=== PATIENT | female | born 1990 | race Two or more races ===

== ENCOUNTER 2024-05-02 00:06 | Emergency (ER) | payer MEDICAID, SELFPAY ==
[2024-05-02 00:31] VITALS: BP 153/90; PULSE 83; RESP 18; TEMP 37.1; O2SAT 97
--- NOTE | 2024-05-02 00:43 | EDNOTE_ITS ---
<Statement entered by Cristina Key MD - 05/12/24 17:37> As co-signing physician, I was present and available for consult prn. I concur with the plan and care as documented by the midlevel provider. Lower Extremity Injury RME/HPI General Chief Complaint: Extremity Injury, Lower Stated Complaint: LEFT ANKLE AND LOWER LEG INJURY Time Seen by Provider: 05/02/24 00:14 Source: patient Arrival date/time: 05/02/24 00:06 33-year-old female presents emergency department complaining of left ankle and left lateral price pain after misstep at home that caused her to twist her ankle and fall forward. Patient denies any LOC or injury to head or neck area. Mode of arrival: wheelchair Limitations: physical limitation Related Data Home Medications ?Medication ?Instructions ?Recorded ?Confirmed norethindrone acetate 1.5 tab 10/16/22 mg-ethinyl estradiol 30 mcg tablet (Microgestin) Previous Rx's ?Medication ?Instructions ?Recorded ibuprofen 600 mg tablet 600 mg PO Q8H PRN pain #20 tabs 05/02/24 Allergies Allergy/AdvReac Type Severity Reaction Status Date / Time No Known Allergies Allergy Verified 10/18/22 09:37 Review of Systems Review of Systems Systems Reviewed: All systems reviewed, normal except as documented Constitutional Constitutional: Reports system reviewed and no additional complaints, except as documented, Denies body ache(s), Denies chills and Denies fever(s) Eyes Eyes: Reports system reviewed and no additional complaints, except as documented and Denies change in vision ENT Ears, Nose, Mouth, and Throat: Reports system reviewed and no additional complaints, except as documented, Denies disequilibrium, Denies dizziness, Denies sore throat and Denies vertigo Cardiovascular Cardiovascular: Reports system reviewed and no additional complaints, except as documented, Denies chest pain and Denies dyspnea Respiratory Respiratory: Reports system reviewed and no additional complaints, except as documented, Denies chest congestion, Denies cough and Denies dyspnea Gastrointestinal Gastrointestinal: Reports system reviewed and no additional complaints, except as documented, Denies abdominal pain, Denies nausea and Denies vomiting Musculoskeletal Musculoskeletal: Reports system reviewed and no additional complaints, except as documented, Denies abnormal gait and Reports arthralgias Integumentary/Breasts Skin/Breast: Reports system reviewed and no additional complaints, except as documented, Denies erythema, Denies rash and Denies wounds Neurologic Neurologic: Reports system reviewed and no additional complaints, except as documented, Denies abnormal gait, Denies disequilibrium, Denies dizziness and Denies vertigo ED Exam General Limitations: Present physical limitation General appearance: Present alert and in no apparent distress Head Head exam: Present atraumatic Eye Eye exam: Present normal appearance, PERRL and EOMI ENT ENT exam: Present normal exam, normal oropharynx and mucous membranes moist Neck Neck exam: Present normal inspection, full ROM and trachea midline Chest Chest inspection: Present normal inspection and symmetric chest wall rise Respiratory Respiratory exam: Present normal lung sounds bilaterally Cardiovascular Cardiovascular exam: Present regular rate, normal rhythm and normal heart sounds Abdominal Exam Abdominal exam: Present soft and normal bowel sounds Extremities Exam Extremities exam: Present normal inspection and full ROM Expanded Lower Extremity Exam Ankle exam: Present tenderness (Left ankle) and swelling (+2 edema left ankle) Foot/toe exam: Present normal inspection Neurovascular/Tendon exam: Present normal capillary refill Gait: observed and limited by pain Back Exam Back exam: Present normal inspection and full ROM Neurological Exam Neurological exam: Present alert, oriented X3 and CN II-XII intact Psychiatric Psychiatric exam: Present normal affect and normal mood Skin Skin exam: Present warm, dry, intact and normal color Course Quality Measures none Orders Category Date Time Status XR ankle comp LT min 3V Stat Exams 05/02/24 00:43 Taken XR tibia fibula LT 2V Stat Exams 05/02/24 00:43 Taken Ketorolac Inj [Toradol Inj] Med 05/02/24 00:43 Discontinued 30 mg IM X1 ONE Vital Signs Vital signs: Vital Signs Temperature 98.7 F 05/02/24 00:31 Pulse Rate 83 05/02/24 00:31 Respiratory Rate 18 05/02/24 00:31 Blood Pressure 153/90 H 05/02/24 00:31 Pulse Oximetry (%) 97 05/02/24 00:31 Oxygen Delivery Method Room Air 05/02/24 00:31 97% room air within normal limits Extremity Injury, Lower MDM Narrative MDM Narrative:: 33-year-old female presents emergency department complaining of left ankle and left lateral price pain after misstep at home that caused her to twist her ankle and fall forward. Patient denies any LOC or injury to head or neck area. X-rays of ankle and tib-fib were unremarkable. Patient's left lower extremity neurovascularly intact. Patient placed in Danny bandage given crutches and instructed to follow-up with primary care provider upon discharge. Instructed to return to the emergency department for any worsening symptoms or as needed. Patient data External records reviewed:: [facility] previous records Clinical information provided by:: patient Social determinants that could affect healthcare access:: none Patient has the following chronic illnesses:: See chart How is presenting disease/condition affected by chronic disease/condition?: un effected by Evaluation data The following diagnostics were reviewed and interpreted by me:: radiology exam(s) Lab and/or radiology exams considered but not ordered:: Ordered Interpretation Summary: Interpreted by me Medications / Prescriptions Medications or Prescriptions considered but not ordered:: Ordered Medication administrations:: Medication Administration History Discontinued Medications Ketorolac Tromethamine (Ketorolac Inj 60 Mg/2 Ml Vial) 30 mg IM X1 ONE Stop: 05/02/24 00:44 Last Admin: 05/02/24 01:13 Dose: 30 mg Documented By: CVL Given Consultations Consultation(s) initiated? (list below): No Diagnosis Most likely diagnosis given after review of the tests above:: Ankle sprain Admission Indicated Admission indicated?: not indicated Admission Request Was there a request for admission?: No Disposition Plan Disposition Plan: Discharge Discharge Attestation Discharge Attestation: The patient and all family members were given an opportunity to ask questions and understood the discharge instructions. Discharge instructions specifically effects, indications for sooner follow up or return to the emergency department, and the expected course of current diagnosis. Patient condition: Stable Discharge Plan Plan Patient Disposition: HOME (Self Care) Disposition Comment: Stable Prescriptions/Referrals Prescriptions/Med Rec: New ibuprofen 600 mg tablet 600 mg PO Q8H PRN (Reason: pain) Qty: 20 0RF No Action norethindrone ac-eth estradiol [Microgestin 1.5/30 (21)] 1.5-30 mg-mcg Tablet Referrals: Troy Mclaughlin MD [Primary Care Provider] - In 1 week Problem List Clinical Impression: Ankle sprain Patient/Caregiver Discharge Instructions Discharge Activity: activity as tolerated Education Materials: ED DANNY Wrap, ED Ankle Sprain (Adult) Additional Instructions: Take ibuprofen as needed for pain. Follow-up with primary care provider upon discharge. Return to emergency department for any worsening symptoms or as needed. Print Language: Ugandan Stand Alone Forms: [employer] Patient Portal Info Letter PA/LABORER ROAD Supervising Physician PA/LABORER ROAD Supervising Physician: Dr. Key
--- NOTE | 2024-05-02 00:43 | XR_ITS ---
EXAMINATION: Ankle, left 3 views . Technique: Ankle AP, oblique, lateral 3 views Date and time of exam: April 30, 2024 0048 hrs. Indications: Patient fell today with into the ankle, ankle pain. Findings: No fracture or dislocation Impression: No fracture or dislocation
--- NOTE | 2024-05-02 00:43 | XR_ITS ---
Examination: Tibia-Fibula, left , 2 views Technique: Tibia-fibula AP lateral 2 views Date and time of exam: May 02, 2024 0048 hrs. Indications: Patient fell today with injury to left lower leg, left lower leg pain. Findings: No fracture or dislocation Impression: No fracture or dislocation
[2024-05-02] MEDS: KETOROLAC INJ 60 MG/2 ML VIAL 30 MG IM (01:13)
[2024-05-02 03:05] VITALS: RESP 18
--- NOTE | 2024-05-02 04:26 | PRELIM_ITS ---
Radiographs of the left ankle joint (03 views). May 02, 2024 at 0048 hoursClinical history: Pain and status post fall.Comparison: No prior study is available for comparison.Findings:There are no fr actures. The bones and joint spaces are unremarkable. Alignment is normal.Normal soft tissues.Impress ion: Normal exam. Report Electronically Signed By: Felipe Carrera 05/02/2024 4:25:38 AM [EST]
== END 2024-05-02 03:06 | disposition home or self-care (01) ==
PROVIDERS: Emergency Provider Emergency Medicine; PCP Family Medicine
DX: S93.402A Sprain of unspecified ligament of left ankle, initial encounter (principal); S89.92XA Unspecified injury of left lower leg, initial encounter; W18.39XA Other fall on same level, initial encounter
CPT/HCPCS: 73590; 73610; 96372; 99283; J1885

== ENCOUNTER 2025-01-23 15:42 | Emergency (ER) | payer MEDICAID, SELFPAY ==
[2025-01-23 15:43] VITALS: BMI 41.6
[2025-01-23 15:47] VITALS: BP 146/95; PULSE 107; RESP 18; TEMP 36.7; O2SAT 96
--- NOTE | 2025-01-23 17:08 | XR_ITS ---
Examination: OB Transvaginal ultrasound of the pelvis, complete Technique: Transvaginal sonographic images pelvis performed using liz scale imaging Exam date and time: January 23, 2025, 1724 hrs. Indications: Vomiting beginning 9:00 AM today Findings: Uterus 14.4 cm CRL 4.15 cm corresponds to 11 weeks 0 days gestational age Cardiac motion 180 bpm Ovaries obscured by bowel gas Impression: Viable intrauterine gestation 11 weeks 0 days.
--- NOTE | 2025-01-23 17:09 | PD.EDRME ---
Rapid Medical Screening Exam E Arrival date/time: 01/23/25 15:42 This is a 34-year-old female that comes in to the emergency room with complaints of vomiting abdominal pain, diarrhea runny nose. Patient states she is 10 weeks 4 days . Patient denies any vaginal bleeding. Patient denies urinary symptoms. I have greeted and performed a focused initial assessment of this patient. Initial appropriate labs ordered at this time. A comprehensive ED assessment and evaluation of the patient and analysis of all test and completion of medical decision making process will be conducted by additional ED provider. Chief Complaint: Nausea/Vomiting/Diarrhea Time Seen by Provider: 01/23/25 16:39 Vital signs: Vital Signs Temperature 98.1 F 01/23/25 15:47 Pulse Rate 107 H 01/23/25 15:47 Respiratory Rate 18 01/23/25 15:47 Blood Pressure 146/95 H 01/23/25 15:47 Pulse Oximetry (%) 96 01/23/25 15:47 Oxygen Delivery Method Room Air 01/23/25 15:47
[2025-01-23 17:35] LABS: Collection Type, Urine Voided
[2025-01-23] MEDS: ONDANSETRON ODT 4 MG TABRAP PO (17:42)
[2025-01-23 17:46] LABS: Bacteria,Urine 1+; Bilirubin,Urine Negative (Negative); Blood,Urine Trace (Negative); Clarity,Urine Turbid (Clear/Hazy); Color,Urine Yellow (Lt Yel-Yel); Glucose, Urine Negative (Negative); Ketones,Urine 2+ (Negative); Leukocyte Esterase,Urine Positive (Negative); Nitrite,Urine Positive (Negative); PH,Urine 6.0 (5.0-7.0); Protein,Urine Trace (Neg - Trace); RBC,Urine 4 /hpf (0-3); Specific Gravity,Urine 1.026 (1.001-1.035); Squamous Epithelial Cell,Urine 4 /hpf (0-5); Transitional Epi Cells,Urine < 1 /hpf (0-5); Urobilinogen,Urine Negative mg/dL (0.0-1.0); WBC,Urine 36 /hpf (0-5)
[2025-01-23 17:47] LABS: Culture Indicated,Urine Yes
[2025-01-23 18:15] LABS: Basophils # (Auto) 0.1 Thou/mm3 (0.0-0.2); Basophils % (Auto) 0 % (0-2.5); Eosinophils # (Auto) 0.1 Thou/mm3 (0.0-0.5); Eosinophils % (Auto) 0 % (0-10); Hematocrit 40.0 % (36.0-46.0); Hemoglobin 14.1 g/dL (12.0-16.0); Immature Granulocytes Auto 0.09 Thou/mm3 (0.00-0.00); Lymphocytes # (Auto) 1.2 Thou/mm3 (1.0-4.8); Lymphocytes % (Auto) 6 % (10-50); Mean Corpuscular HGB Conc 35.3 g/dl (31.0-37.0); Mean Corpuscular Hemoglobin 30.1 pg (25.0-35.0); Mean Corpuscular Volume 85 fL (80-100); Monocytes # (Auto) 0.9 Thou/mm3 (0.0-0.8); Monocytes % (Auto) 4 % (0-12); Neutrophils # (Auto) 18.7 Thou/mm3 (1.8-7.7); Neutrophils % (Auto) 89 % (37-80); Nucleated Red Blood Cell # 0.00 Thou/mm3 (0.00-0.00); Nucleated Red Blood Cell % 0 /100 WBC (0); Platelet Count 219 Thou/mm3 (140-440); RDW Standard Deviation 40.6 fL (36.4-46.3); Red Blood Count 4.69 Miln/mm3 (4.00-5.20); White Blood Count 21.0 Thou/mm3 (3.6-11.0)
[2025-01-23 19:10] LABS: Alanine Aminotransferase 12 U/L (10-49); Albumin, Serum 4.4 gm/dL (3.5-5.0); Albumin/Globulin Ratio 1.8 (1.2-2.2); Alkaline Phosphatase 60 U/L (46-116); Anion Gap 14 (7-16); Aspartate Amino Transferase 19 U/L (0-34); BUN/Creatinine Ratio 16 Ratio (12-20); Bilirubin,Total 0.3 mg/dL (0.3-1.2); Blood Urea Nitrogen 8 mg/dL (9-23); Calcium 9.6 mg/dL (8.3-10.6); Calcium (Corrected) 9.6 mg/dL (8.5-10.1); Carbon Dioxide 22.5 mMol/L (20.0-31.0); Chloride 104 mMol/L (98-107); Creatinine (Component) 0.5 mg/dL (0.6-1.3); Estimated Creatinine Clearance 185.4 mL/min (>60); Globulin 2.4 gm/dL (2.3-3.5); Glucose 87 mg/dL (74-106); Osmolality,Calculated 276 (275-295); Potassium 3.9 mMol/L (3.4-5.1); Sodium 140 mMol/L (136-145); Total Protein 6.8 gm/dL (5.7-8.2); eGFR > 60 See Note
[2025-01-23 19:42] LABS: Beta HCG,Quantitative 95621 mIU/mL (<5.0)
--- NOTE | 2025-01-23 20:34 | PD.EDADULT ---
ED General RME/HPI General Chief complaint: Nausea/Vomiting/Diarrhea Stated complaint: VOMITING/ABD PAIN TODAY AND + PREG Time Seen by Provider: 01/23/25 16:39 Arrival date/time: 01/23/25 15:42 CC: Nausea vomiting runny nose intermittent diarrhea HPI ongoing since this morning. Patient is a G4, P2 at estimated 10 weeks and 4 days who denies any vaginal bleeding vaginal discharge lower abdominal cramping lower back pain. Patient is seen by [facility] for her . Currently the patient is not nauseated after being administered Zofran while in the waiting room. RME / HPI RME / HPI narrative: 01/23/25 15:42 This is a 34-year-old female that comes in to the emergency room with complaints of vomiting abdominal pain, diarrhea runny nose. Patient states she is 10 weeks 4 days . Patient denies any vaginal bleeding. Patient denies urinary symptoms. I have greeted and performed a focused initial assessment of this patient. Initial appropriate labs ordered at this time. A comprehensive ED assessment and evaluation of the patient and analysis of all test and completion of medical decision making process will be conducted by additional ED provider. Related Data Home Medications ?Medication ?Instructions ?Recorded ?Confirmed norethindrone acetate 1.5 tab 10/16/22 mg-ethinyl estradiol 30 mcg tablet (Microgestin) Previous Rx's ?Medication ?Instructions ?Recorded ibuprofen 600 mg tablet 600 mg PO Q8H PRN pain #20 tabs 05/02/24 amoxicillin 875 mg-potassium 1 tab PO BID #14 tabs 01/23/25 clavulanate 125 mg tablet ondansetron 4 mg disintegrating 4 mg PO Q8H #20 tabs 01/23/25 tablet Allergies Allergy/AdvReac Type Severity Reaction Status Date / Time No Known Allergies Allergy Verified 01/23/25 15:45 Review of Systems Review of Systems Narrative Review of Systems: GEN: No fever, no chills, no weight loss EYES: No discharge, no visual changes, no pain HEENT: No ear pain, no congestion, no sore throat PULM: No shortness of breath, no cough, no congestion CV: No chest pain, no dyspnea on exertion, no palpitations GI: + nausea, +vomiting, no diarrhea, no pain, no constipation : No frequency, no urgency, no dysuria MUSC/SKEL: No joint pain, no back pain SKIN: No rash PSYCH: No hallucinations, no depression HEME/LYMPH: No easy bleeding or bruising tendencies NEURO: No weakness, no headache ED Exam Narrative Physical exam: [General: Obese not in any acute distress Head normocephalic HEENT: Within acceptable limits Neck is supple nontender Chest equal chest rise nontender to palpation Respiratory: Clear to auscultation no wheezes crackles or rubs CV: Rate rhythm is regular no murmurs rubs or clicks Abdomen is distended secondary to body habitus soft nontender no masses positive bowel sounds all 4 quadrants Back: No CVA tenderness no spinous process tenderness from cervical spine thoracic and lumbar spine Skin: Intact no petechiae rash induration ulceration or crepitus Extremities: Moving all extremity against resistance cap refill less than 2 seconds neurosensory intact Neuro: Awake alert oriented x3 Glascow coma 15 no focal deficits] Course Course Course Narrative: Patient's case discussed with Dr. Walker due to concern of the leukocytosis. He advised the patient to receive a gram of Rocephin and be discharged home on antibiotics. Patient is to follow-up with a primary care provider if the symptoms worsen despite of the medications return the emergency room for reevaluation. Quality Measures none Orders Category Date Time Status Bedside COVID-19 Antigen Test NOW Care 01/23/25 17:10 Active Bedside Influenza A&B Antigen Test NOW Care 01/23/25 17:10 Completed US OB transvaginal Stat Exams 01/23/25 17:08 Completed Beta HCG,Quantitative Stat Lab 01/23/25 17:57 Completed CBC Stat Lab 01/23/25 17:57 Completed Comprehensive Metabolic Panel Stat Lab 01/23/25 17:57 Completed Urinalysis, C/S if Indicated Stat Lab 01/23/25 17:25 Completed Urine Culture Stat Lab 01/23/25 17:25 Received Ondansetron Odt [Zofran Odt] Med 01/23/25 17:09 Discontinued 4 mg PO X1 ONE cefTRIAXone [Rocephin] 1,000 mg Med 01/23/25 20:34 Ordered Lidocaine 1% 20 ml [Xylocaine 1% 20 ML] 2.1 ml IM X1 Vital Signs Vital signs: Vital Signs Temperature 98.1 F 01/23/25 15:47 Pulse Rate 107 H 01/23/25 15:47 Respiratory Rate 18 09/07/25 15:47 Blood Pressure 146/95 H 01/23/25 15:47 Pulse Oximetry (%) 96 01/23/25 15:47 Oxygen Delivery Method Room Air 01/23/25 15:47 Discharge Plan Plan Patient Disposition: HOME (Self Care) Patient condition on transfer: Stable Prescriptions/Referrals Prescriptions/Med Rec: New amoxicillin-pot clavulanate 875-125 mg tablet 1 tab PO BID Qty: 14 0RF ondansetron 4 mg tablet,disintegrating 4 mg PO Q8H Qty: 20 0RF No Action norethindrone ac-eth estradiol [Microgestin 1.5/30 (21)] 1.5-30 mg-mcg Tablet ibuprofen 600 mg tablet 600 mg PO Q8H PRN (Reason: pain) Qty: 20 0RF Referrals: Gisel Hewitt CNM [Primary Care Provider, Obstetrics] - In 1 week Problem List Clinical Impression: UTI (urinary tract infection), Nausea & vomiting, Patient/Caregiver Discharge Instructions Education Materials: First Trimester, ED CYSTITIS Female Adult, ED Vomiting (Adult) Print Language: Croatian Stand Alone Forms: [employer] Award Info., Patient Portal Info Letter, Work/School Release PA/CRA OFFICER Supervising Physician PA/CRA OFFICER Supervising Physician: Wong Escobar ENP [facility] Clinical Information Provided by patient Medical Records Reviewed [facility] Meds/Rx Considered, not Ordered None Labs/Rad/Tests considered, not Ordered None Chronic Illness/Social Conditions Add or document further as needed: , obesity EKG EKG not done Lab Interpretation Lab(s) interpretation(s): CBC shows a leukocytosis of 21, no significant anemia or thrombocytopenia no bandemia CMP shows BUN of 8 creatinine of 0.5 no other electrolyte imbalances renal impairment transaminitis or T. bili elevation. Quantitative hCG at 95,621. Urine is turbid 2+ ketones nitrite positive leukocyte esterase positive RBCs at 4 WBCs at 30 61+ bacteria and 4 squamous cells. Imaging Provider imaging interpretation(s): Ultrasound shows a single IUP viable at 11 weeks 0 days. Medication Administration(s) none Medication Administration History Ceftriaxone Sodium 1,000 mg/ (Lidocaine HCl 2.1 ml) 0 mg IM X1 ONE Stop: 01/23/25 20:35 Discontinued Medications Ondansetron HCl (Ondansetron Odt 4 Mg Tabrap) 4 mg PO X1 ONE; Protocol Stop: 01/23/25 17:10 Last Admin: 01/23/25 17:42 Dose: 4 mg Documented By: Diagnosis Differential diagnosis: UTI pyelonephritis miscarriage Dispositon Disposition: Discharge Home
[2025-01-23] MEDS: cefTRIAXone 1,000 MG, LIDOCAINE 1% 20 ML 2.1 ML IM (20:49)
[2025-01-23 21:14] VITALS: BP 118/74; PULSE 84; RESP 18; O2SAT 98
== END 2025-01-23 21:15 | disposition home or self-care (01) ==
PROVIDERS: Nurse Practitioner Family; Emergency Provider Emergency Medicine; PCP Nurse Practitioner Women's Health
DX: O23.41 Unspecified infection of urinary tract in pregnancy, first trimester (principal); O21.9 Vomiting of pregnancy, unspecified; N39.0 Urinary tract infection, site not specified; Z3A.11 11 weeks gestation of pregnancy
CPT/HCPCS: 36415; 76817; 80053; 81001; 84702; 85025; 87077; 87086; 87186; 87400; 87811; 96372; 99284; J0696; J3490; Q0162

== ENCOUNTER 2025-03-14 16:09 | Emergency (ER) | payer MEDICAID, SELFPAY ==
[2025-03-14 16:10] VITALS: BMI 41.1
[2025-03-14 16:29] VITALS: BP 159/84; BP 170/80; PULSE 102; RESP 20; TEMP 36.9; O2SAT 98
--- NOTE | 2025-03-14 16:32 | EKG_ITS ---
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
--- NOTE | 2025-03-14 16:32 | PD.EDRME ---
Rapid Medical Screening Exam RME Arrival date/time: 03/14/25 16:09 34-year-old female with no known medical history presents to the emergency room with a chief complaint of 6 out of 10 left-sided sternal chest pain that radiates down her left arm x 2 days I have greeted and performed a focused initial assessment of this patient. A comprehensive ED assessment and evaluation of the patient, analysis of all test results, and completion of the medical decision making process will be conducted by additional ED providers. Chief Complaint: Shortness of Breath/Dyspnea Time Seen by Provider: 03/14/25 16:22 Vital signs: Vital Signs Temperature 98.5 F 03/14/25 16:29 Pulse Rate 102 H 03/14/25 16:29 Respiratory Rate 20 03/14/25 16:29 Blood Pressure 159/84 H 03/14/25 16:29 Pulse Oximetry (%) 98 03/14/25 16:29 Oxygen Delivery Method Room Air 03/14/25 16:29 Vital signs reviewed by provider: Yes Exam: Strong and regular rhythm S1 and S2 noted Clear bilateral lung sounds GCS of 15 alert and oriented x 3 Clinical Impression: Chest pain/costochondritis/STEMI/NSTEMI/anxiety
[2025-03-14 17:12] LABS: Basophils # (Auto) 0.1 Thou/mm3 (0.0-0.2); Basophils % (Auto) 0 % (0-2.5); Eosinophils # (Auto) 0.1 Thou/mm3 (0.0-0.5); Eosinophils % (Auto) 1 % (0-10); Hematocrit 33.8 % (36.0-46.0); Hemoglobin 11.7 g/dL (12.0-16.0); Immature Granulocytes Auto 0.12 Thou/mm3 (0.00-0.00); Lymphocytes # (Auto) 2.5 Thou/mm3 (1.0-4.8); Lymphocytes % (Auto) 17 % (10-50); Mean Corpuscular HGB Conc 34.6 g/dl (31.0-37.0); Mean Corpuscular Hemoglobin 30.0 pg (25.0-35.0); Mean Corpuscular Volume 87 fL (80-100); Monocytes # (Auto) 0.9 Thou/mm3 (0.0-0.8); Monocytes % (Auto) 6 % (0-12); Neutrophils # (Auto) 11.0 Thou/mm3 (1.8-7.7); Neutrophils % (Auto) 75 % (37-80); Nucleated Red Blood Cell # 0.00 Thou/mm3 (0.00-0.00); Nucleated Red Blood Cell % 0 /100 WBC (0); Platelet Count 252 Thou/mm3 (140-440); RDW Standard Deviation 41.1 fL (36.4-46.3); Red Blood Count 3.90 Miln/mm3 (4.00-5.20); White Blood Count 14.6 Thou/mm3 (3.6-11.0)
[2025-03-14 17:28] VITALS: BP 145/81; PULSE 91; RESP 18; TEMP 37.3; O2SAT 98
[2025-03-14 17:31] LABS: B-Type Natriuretic Peptide < 20 pg/mL (0-100)
[2025-03-14 17:37] LABS: Collection Type, Urine Clean Catch; RBC,Urine 0 /hpf (0-3); WBC,Urine 0 /hpf (0-5)
[2025-03-14 17:43] LABS: Alanine Aminotransferase < 7 U/L (10-49); Albumin, Serum 4.1 gm/dL (3.5-5.0); Albumin/Globulin Ratio 1.9 (1.2-2.2); Alkaline Phosphatase 54 U/L (46-116); Anion Gap 12 (7-16); Aspartate Amino Transferase 11 U/L (0-34); BUN/Creatinine Ratio 13 Ratio (12-20); Bilirubin,Total 0.2 mg/dL (0.3-1.2); Blood Urea Nitrogen < 5 mg/dL (9-23); Calcium 8.6 mg/dL (8.3-10.6); Calcium (Corrected) 8.6 mg/dL (8.5-10.1); Carbon Dioxide 21.8 mMol/L (20.0-31.0); Chloride 107 mMol/L (98-107); Creatinine (Component) 0.4 mg/dL (0.6-1.3); Estimated Creatinine Clearance 238.9 mL/min (>60); Globulin 2.2 gm/dL (2.3-3.5); Glucose 138 mg/dL (74-106); Magnesium 1.7 mg/dL (1.6-2.6); Osmolality,Calculated 280 (275-295); Potassium 3.5 mMol/L (3.4-5.1); Sodium 141 mMol/L (136-145); Total Protein 6.3 gm/dL (5.7-8.2); Troponin I < 0.002 ng/mL (0.0-0.045); eGFR > 60 See Note
[2025-03-14 17:48] LABS: INR 0.9 (0.9-1.3); Partial Thromboplastin Time 26.2 Seconds (22.0-36.0); Prothrombin Time 9.7 Seconds (9.0-12.2)
[2025-03-14 17:49] LABS: Amphetamine/Methamp Scrn,U Negative (Negative); Barbiturate Screen,Urine Negative (Negative); Benzodiazepines Screen,Urine Negative (Negative); Benzoylecgonine Screen, Ur Negative (Negative); Fentanyl Screen,Urine Negative (Negative); Opiate Screen,Urine Negative (Negative); THC Screen,Urine Negative (Negative)
--- NOTE | 2025-03-14 17:52 | PD.EDADULT ---
ED General RME/HPI General Chief complaint: Shortness of Breath/Dyspnea Stated complaint: DIFF BREATHING TODAY WITH HIGH B/P, + PREG Time Seen by Provider: 03/14/25 16:22 Arrival date/time: 03/14/25 16:09 CC: Bitemporal headache, palpitations, HPI ongoing for the past 3 to 4 hours. The patient is a G5, P2 at 17 weeks. She is high risk being seen by Dr. Walker. Patient denies vaginal bleeding vaginal discharge shortness of breath or difficulty breathing. RME / HPI RME / HPI narrative: 03/14/25 16:09 34-year-old female with no known medical history presents to the emergency room with a chief complaint of 6 out of 10 left-sided sternal chest pain that radiates down her left arm x 2 days I have greeted and performed a focused initial assessment of this patient. A comprehensive ED assessment and evaluation of the patient, analysis of all test results, and completion of the medical decision making process will be conducted by additional ED providers. Exam: Strong and regular rhythm S1 and S2 noted Clear bilateral lung sounds GCS of 15 alert and oriented x 3 Impression: Chest pain/costochondritis/STEMI/NSTEMI/anxiety Related Data Home Medications ?Medication ?Instructions ?Recorded ?Confirmed norethindrone acetate 1.5 tab 10/16/22 mg-ethinyl estradiol 30 mcg tablet (Microgestin) Previous Rx's ?Medication ?Instructions ?Recorded ibuprofen 600 mg tablet 600 mg PO Q8H PRN pain #20 tabs 05/02/24 amoxicillin 875 mg-potassium 1 tab PO BID #14 tabs 01/23/25 clavulanate 125 mg tablet ondansetron 4 mg disintegrating 4 mg PO Q8H #20 tabs 01/23/25 tablet Allergies Allergy/AdvReac Type Severity Reaction Status Date / Time No Known Allergies Allergy Verified 03/14/25 16:12 Review of Systems Review of Systems Narrative Review of Systems: GEN: No fever, no chills, no weight loss EYES: No discharge, no visual changes, no pain HEENT: No ear pain, no congestion, no sore throat PULM: No shortness of breath, no cough, no congestion CV: No chest pain, no dyspnea on exertion, + palpitations GI: No nausea, no vomiting, no diarrhea, no pain, no constipation : No frequency, no urgency, no dysuria MUSC/SKEL: No joint pain, no back pain SKIN: No rash PSYCH: No hallucinations, no depression HEME/LYMPH: No easy bleeding or bruising tendencies NEURO: No weakness, + headache Course Course Course Narrative: heart tones in the 150s good variability. Reassessment@1999, the patient has pressure is decreased to 130/70. Heart rate is under 100 headache is resolved to all with Tylenol. This time comfortable discharging this patient home with and headache. Patient is to follow-up with Dr. Walker in the next 2 weeks. Patient advised if there is a worsening of symptoms return the emergency room for reevaluation. I do not feel the patient has preeclampsia at this time Quality Measures none Orders Category Date Time Status EKG (ED ONLY) *Do not use* NOW Care 03/14/25 16:32 Completed heart tone auscultation NOW Care 03/14/25 17:50 Active EKG (ED Only) Stat Exams 03/14/25 16:32 Draft B-Type Natriuretic Peptide Stat Lab 03/14/25 16:50 Completed CBC Stat Lab 03/14/25 16:50 Completed Comprehensive Metabolic Panel Stat Lab 03/14/25 16:50 Completed Drug Screen,Urine Stat Lab 03/14/25 17:08 Completed Magnesium Stat Lab 03/14/25 16:50 Completed Partial Thromboplastin Time Stat Lab 03/14/25 16:50 Completed Prothrombin Time with INR Stat Lab 03/14/25 16:50 Completed Troponin I Stat Lab 03/14/25 16:50 Completed Urinalysis, C/S if Indicated Stat Lab 03/14/25 17:08 Completed Acetaminophen Tab [Tylenol Tab] Med 03/14/25 18:11 Discontinued 650 mg PO X1 ONE Vital Signs Vital signs: Vital Signs Temperature 98.5 F 03/14/25 16:29 Pulse Rate 102 H 03/14/25 16:29 Respiratory Rate 20 03/14/25 16:29 Blood Pressure 159/84 H 03/14/25 16:29 Pulse Oximetry (%) 98 03/14/25 16:29 Oxygen Delivery Method Room Air 03/14/25 16:29 Discharge Plan Plan Patient Disposition: HOME (Self Care) Patient condition on transfer: Stable Prescriptions/Referrals Prescriptions/Med Rec: No Action norethindrone ac-eth estradiol [Microgestin 1.5/30 (21)] 1.5-30 mg-mcg Tablet amoxicillin-pot clavulanate 875-125 mg tablet 1 tab PO BID Qty: 14 0RF ondansetron 4 mg tablet,disintegrating 4 mg PO Q8H Qty: 20 0RF ibuprofen 600 mg tablet 600 mg PO Q8H PRN (Reason: pain) Qty: 20 0RF Referrals: Troy Mclaughlin MD [Primary Care Provider, Family Practice] - In 1 week Problem List Clinical Impression: , Headache Patient/Caregiver Discharge Instructions Education Materials: Preg 2nd Trimester, Self-Care for Headaches Additional Instructions: Continue to take Tylenol for headaches if the headaches do not respond to the Tylenol and your pressures are elevated return to the emergency room or seek follow-up with your SCOOPER for further evaluation. Print Language: Thai Stand Alone Forms: [employer] Award Info., Work/School Release, Patient Portal Info Letter PA/KENNEY Supervising Physician PA/KENNEY Supervising Physician: Jeffrey Escobar ENP [facility] Clinical Information Provided by: patient Medical Records reviewed [facility] Meds/Rx considered, not ordered None Labs/Rad/Tests considered, not ordered None Chronic Illness/Social Conditions Explain: EKG Interpretation EKG #1: EKG Interpretation: EKG performed at 1637 shows rate of 94 OK interval 159 QRS of 109 QTc of 426. Labs Labs: interpreted by [place] Lab(s) Interpretation(s): CBC shows mild leukocytosis of 14.6 H&H of 11.7 and 33.8 and platelets of 252. Coags within acceptable limits CMP shows no acute electrolyte imbalances other than glucose of 138 BUN less than 5 creatinine 0.4. No transaminitis or T. bili elevation UDS is negative. Medication Administration(s) Medication Administration History Discontinued Medications Acetaminophen (Acetaminophen 325 Mg Tablet) 650 mg PO X1 ONE Stop: 03/14/25 18:12 Last Admin: 03/14/25 18:33 Dose: 650 mg Documented By: AMANDEEP
[2025-03-14 17:55] LABS: Amorphous Crystals,Urine Present (Absent); Bacteria,Urine Rare; Bilirubin,Urine Negative (Negative); Blood,Urine Negative (Negative); Clarity,Urine Turbid (Clear/Hazy); Color,Urine Lt-Yellow (Lt Yel-Yel); Culture Indicated,Urine Not Indicated; Glucose, Urine Negative (Negative); Ketones,Urine Negative (Negative); Leukocyte Esterase,Urine Negative (Negative); Nitrite,Urine Negative (Negative); PH,Urine 7.5 (5.0-7.0); Protein,Urine Negative (Neg - Trace); Specific Gravity,Urine 1.012 (1.001-1.035); Squamous Epithelial Cell,Urine 2 /hpf (0-5); Urobilinogen,Urine Negative mg/dL (0.0-1.0)
[2025-03-14] MEDS: ACETAMINOPHEN 325 MG TABLET 650 MG PO (18:33)
--- NOTE | 2025-03-14 18:47 | PC.NURSE ---
PT GCS 15 UPON ASSUMPTION OF CARE, STATES SHE HAS PALPITATIONS AND HEADACHE, MEDICATED FOR HEADACHE, USED DOPPLER TO ASSESS FHT, FOUND IN RLQ AT 155BPM. PROVIDER UPDATED, WILL CONT W/POC
[2025-03-14 19:10] VITALS: BP 134/76; PULSE 92; RESP 19; TEMP 36.7; O2SAT 97
[2025-03-14 21:59] VITALS: BP 131/72; PULSE 90; RESP 17; TEMP 37; O2SAT 97
== END 2025-03-14 22:02 | disposition home or self-care (01) ==
PROVIDERS: Nurse Practitioner Family; Emergency Provider Emergency Medicine; PCP Family Medicine
DX: O26.892 Other specified pregnancy related conditions, second trimester (principal); O99.342 Other mental disorders complicating pregnancy, second trimester; Z3A.17 17 weeks gestation of pregnancy; F41.9 Anxiety disorder, unspecified; R51.9 Headache, unspecified
CPT/HCPCS: 36415; 80053; 80307; 81001; 83735; 83880; 84484; 85025; 85610; 85730; 93005; 99282; A9270

== ENCOUNTER 2025-04-02 18:59 | Emergency (ER) | payer MEDICAID, SELFPAY ==
[2025-04-02 19:44] VITALS: BP 139/84; PULSE 111; RESP 18; TEMP 37.9; O2SAT 97; BMI 42.3
--- NOTE | 2025-04-02 19:48 | XR_ITS ---
Examination: Complete OB ultrasound greater than 14 weeks Date and time of exam: April 02, 2025, 10:00 p.m. INDICATIONS: Fever nausea beginning 2 days ago Findings: Viable intrauterine single fetus with single amniotic sac presentation variable Cardiac motion 171 bpm Placenta posterior grade 1 Umbilical cord insertion seen Amniotic fluid index 15.1 cm Cervix 6.6 cm Ovaries obscured by the uterus. Composite estimated gestational age based on BPD, head circumference, abdominal circumference, femur length is 20 weeks 5 days Estimated weight 591.8 g. Survey of intracranial anatomy, spinal anatomy, abdominal anatomy, four-chamber heart performed with no abnormalities identified. Impression: Viable intrauterine gestation in variable presentation.
[2025-04-02 20:46] LABS: Influenza A Ag Negative; Influenza B Ag Negative; Strep A Rapid Negative (Negative)
[2025-04-02] MEDS: ALBUTEROL/IPRATROPIUM (Duoneb) RT SOL 3 ML NEBU INH (23:42)
[2025-04-02 23:44] VITALS: PULSE 113; RESP 20; O2SAT 98
[2025-04-02] MEDS: SODIUM CHLORIDE 0.9% 1000 ML 1,000 ML 999 ML IV (23:55)
[2025-04-02] MEDS: DEXAMETHASONE SOD PHOS INJ 10 MG/ML VIAL IM (23:55)
[2025-04-02] MEDS: ONDANSETRON INJ 2 MG/ML INJ 2 ML 4 MG IVP (23:56)
[2025-04-03 00:17] LABS: Collection Type, Urine Voided
[2025-04-03 00:20] LABS: Basophils # (Auto) 0.1 Thou/mm3 (0.0-0.2); Basophils % (Auto) 1 % (0-2.5); Eosinophils # (Auto) 0.0 Thou/mm3 (0.0-0.5); Eosinophils % (Auto) 0 % (0-10); Hematocrit 34.0 % (36.0-46.0); Hemoglobin 11.8 g/dL (12.0-16.0); Immature Granulocytes Auto 0.08 Thou/mm3 (0.00-0.00); Lymphocytes # (Auto) 1.4 Thou/mm3 (1.0-4.8); Lymphocytes % (Auto) 14 % (10-50); Mean Corpuscular HGB Conc 34.7 g/dl (31.0-37.0); Mean Corpuscular Hemoglobin 30.3 pg (25.0-35.0); Mean Corpuscular Volume 87 fL (80-100); Monocytes # (Auto) 0.9 Thou/mm3 (0.0-0.8); Monocytes % (Auto) 9 % (0-12); Neutrophils # (Auto) 7.7 Thou/mm3 (1.8-7.7); Neutrophils % (Auto) 76 % (37-80); Nucleated Red Blood Cell # 0.00 Thou/mm3 (0.00-0.00); Nucleated Red Blood Cell % 0 /100 WBC (0); Platelet Count 196 Thou/mm3 (140-440); RDW Standard Deviation 41.0 fL (36.4-46.3); Red Blood Count 3.89 Miln/mm3 (4.00-5.20); White Blood Count 10.1 Thou/mm3 (3.6-11.0)
[2025-04-03 00:31] LABS: Amorphous Crystals,Urine Present (Absent); Bacteria,Urine Rare; Bilirubin,Urine Negative (Negative); Blood,Urine Negative (Negative); Clarity,Urine Turbid (Clear/Hazy); Color,Urine Lt-Yellow (Lt Yel-Yel); Glucose, Urine Negative (Negative); Ketones,Urine 3+ (Negative); Leukocyte Esterase,Urine Positive (Negative); Nitrite,Urine Negative (Negative); PH,Urine 6.5 (5.0-7.0); Protein,Urine Trace (Neg - Trace); RBC,Urine 6 /hpf (0-3); Specific Gravity,Urine 1.019 (1.001-1.035); Squamous Epithelial Cell,Urine 10 /hpf (0-5); Urobilinogen,Urine Negative mg/dL (0.0-1.0); WBC,Urine 5 /hpf (0-5)
[2025-04-03 01:07] LABS: Alanine Aminotransferase 22 U/L (10-49); Albumin, Serum 4.4 gm/dL (3.5-5.0); Albumin/Globulin Ratio 2.1 (1.2-2.2); Alkaline Phosphatase 57 U/L (46-116); Anion Gap 11 (7-16); Aspartate Amino Transferase 33 U/L (0-34); BUN/Creatinine Ratio 10 Ratio (12-20); Bilirubin,Total 0.3 mg/dL (0.3-1.2); Blood Urea Nitrogen < 5 mg/dL (9-23); Calcium 9.0 mg/dL (8.3-10.6); Calcium (Corrected) 9.0 mg/dL (8.5-10.1); Carbon Dioxide 22.2 mMol/L (20.0-31.0); Chloride 105 mMol/L (98-107); Creatinine (Component) 0.5 mg/dL (0.6-1.3); Estimated Creatinine Clearance 187.2 mL/min (>60); Globulin 2.1 gm/dL (2.3-3.5); Glucose 81 mg/dL (74-106); Osmolality,Calculated 271 (275-295); Potassium 3.6 mMol/L (3.4-5.1); Sodium 138 mMol/L (136-145); Total Protein 6.5 gm/dL (5.7-8.2); eGFR > 60 See Note
[2025-04-03 01:27] LABS: Beta HCG,Quantitative 12906 mIU/mL (<5.0)
--- NOTE | 2025-04-03 01:27 | EDNOTE_ITS ---
Upper Respiratory Inf. RME/HPI General Chief Complaint: Flu Like Symptoms Stated Complaint: H/A, CHILLS, FEVER, COUGH X2 DAYS Time Seen by Provider: 04/02/25 19:15 Arrival date/time: 04/02/25 18:59 This is a case of 34-year-old female with no medical history came in in the emergency room due to cough on and off for 3 days associated with subjective fever chills sore throat and nasal congestion persistence of the symptoms now with vomiting twice nonprojectile and thus patient decided to sought consult here in the emergency room denies any abdominal pain denies any painful urination denies any back or flank pain denies any constipation diarrhea denies any shortness of breath chest pain denies any palpitation denies any vaginal bleeding vaginal discharge or vaginal spotting patient was initially seen by OB harpooner in the labor and delivery and was cleared and was sent back here in the emergency room Limitations: no limitations Related Data Home Medications ?Medication ?Instructions ?Recorded ?Confirmed norethindrone acetate 1.5 tab 10/16/22 mg-ethinyl estradiol 30 mcg tablet (Microgestin) Previous Rx's ?Medication ?Instructions ?Recorded ibuprofen 600 mg tablet 600 mg PO Q8H PRN pain #20 t abs 05/02/24 amoxicillin 875 mg-potassium 1 tab PO BID #14 tabs 12/10 clavulanate 125 mg tablet ondansetron 4 mg disintegrating 4 mg PO Q8H #20 tabs 0 01/23/25 tablet albuterol sulfate 90 mcg/actuation 2 puff inhalation Q 4H PRN 04/03/25 aerosol inhaler (Ventolin HFA) shortness of breath or wheezing #8.5 grams ondansetron HCl 4 mg tablet 4 mg PO Q8H PRN nausea and 04/03/25 vomiting #3 tabs Allergies Allergy/AdvReac Type Severity Reaction Status Date / Time No Known Allergies Allergy Verified 04/02/25 19:02 Review of Systems Review of Systems Systems Reviewed: All systems reviewed, normal except as documented Constitutional Constitutional: Reports system reviewed and no additional complaints, except as documented and Reports as per HPI ENT Ears, Nose, Mouth, and Throat: Reports system reviewed and no additional complaints, except as documented and Reports as per HPI Cardiovascular Cardiovascular: Reports system reviewed and no additional complaints, except as documented and Reports as per HPI Respiratory Respiratory: Reports as per HPI Gastrointestinal Gastrointestinal: Reports system reviewed and no additional complaints, except as documented and Reports as per HPI Genitourinary Genitourinary: Reports system reviewed and no additional complaints, except as documented and Reports as per HPI Neurologic Neurologic: Reports system reviewed and no additional complaints, except as documented and Reports as per HPI Past Medical History Past Medical History NEUROLOGIC: Negative Neurological Disorders or Seizures CARDIAC: Negative Cardiac Disorders (preeclamsia B/P is now normal) or Congestive Heart Failure RESPIRATORY: Negative Chronic Obstructive Pulmonary Disease (COPD) GASTROINTESTINAL: Positive Gastrointestinal Disorders, Gall Bladder Disease and Obesity; Negative Hepatitis, Cirrhosis, Pancreatitis, Celiac Disease, Gastrointestinal Bleed, Esophageal Varices, Stanford's Esophagus, Colitis, Ulcerative Colitis, Diverticulitis, Diverticulosis, Ulcer, Irritable Bowel, Crohn's Disease, Obstructive Bowel, Hiatal Hernia, Hemorrhoids or Gastroesophageal Reflux Disease GENITOURINARY: Negative Genitourinary Disorders, Renal Disease or Benign Prostatic Hyperplasia REPRODUCTIVE: Positive Previous Pregnancies; Negative Endometriosis, Pelvic Inflammatory Disease or Uterine Prolapse MUSCULOSKELETAL: Negative Musculoskeletal Disorders ENT: Positive Deafness (left) ENDOCRINE: Negative Endocrine Disorders, Diabetes Mellitus Type 1 or Diabetes Mellitus Type 2 HEMATOLOGIC: Positive Blood Disorders and Anemia; Negative Leukemia, Hemophilia, Thalassemia, Sickle Cell Disease or Clotting Problems OTHER HISTORY: Negative Hospitalization, Autoimmune Disease, Down Syndrome, Developmental Delay, Shingles, Falls, Blood Transfusions, Blood Transfusion Reaction, Anesthesia Reactions, Organ Transplant, Chemotherapy, Radiation Therapy, Hyperbaric Therapy, MRSA, VRSA, Vancomycin-Resistant Enterococci, Human Immunodeficiency Virus (HIV), Chicken Pox, Measles, Mumps, Rubella (Trinidadian Measles), Pertussis, Clostridium Difficile or Cancer Family History FAMILY HISTORY: Positive Family Respiratory Disorders (MOM BROTHER, ASTHMA) and Family Surgery; Negative Family Psychiatric Problems, Family Cardiac Disorders, Family Gastrointestinal Problems, Family Cancer or Family Anesthesia Reaction Surgical History SURGICAL: Negative Cardiac Surgery, Open Heart Surgery, Coronary Artery Bypass Graft, Valve Replacement, Vascular Surgery, Coronary Stent, Cardiac Catheterization, Pacemaker, Angiogram, Auto Implanted Cardiovert Defib, Carotid Endarterectomy, Endocrine Surgery, Thyroidectomy, Ear Surgery, Abdominal Surgery, Nephrectomy, Joint Replacement, Neurologic Surgery, Mastectomy, Section or Organ Transplant Social History SMOKING STATUS: Never smoker ED Exam General Limitations: Present no limitations General appearance: Present alert, in no apparent distress and other (Patient is awake alert oriented not in distress nontoxic looking well-hydrated well- nourished) Head Head exam: Present atraumatic, normocephalic and normal inspection Eye Eye exam: Present normal appearance, PERRL and EOMI ENT ENT exam: Present normal exam, normal oropharynx, mucous membranes moist and other (HEENT exam is normal and unremarkable) Neck Neck exam: Present normal inspection, full ROM, trachea midline and other (T4 meningeal sign); Absent tenderness, meningismus, lymphadenopathy or thyromegaly Chest Chest inspection: Present normal inspection and symmetric chest wall rise; Absent tenderness Respiratory Respiratory exam: Present normal lung sounds bilaterally and wheezes; Absent respiratory distress, stridor, accessory muscle use or prolonged expiratory phase Cardiovascular Cardiovascular exam: Present regular rate, normal rhythm and normal heart sounds; Absent bradycardia, tachycardia, irregular rhythm, systolic murmur or diastolic murmur Abdominal Exam Abdominal exam: Present soft, normal bowel sounds and other (Gravid uterus); Absent distention, tenderness, guarding, rebound, rigidity, diminished bowel sounds, hyperactive bowel sounds or hypoactive bowel sounds Extremities Exam Extremities exam: Present normal inspection and full ROM Back Exam Back exam: Present normal inspection and full ROM Neurological Exam Neurological exam: Present alert, oriented X3, CN II-XII intact, normal gait and reflexes normal; Absent motor sensory deficit Psychiatric Psychiatric exam: Present normal affect and normal mood Skin Skin exam: Present warm, dry, intact, normal color and other (Excellent skin turgor) Course Quality Measures none Orders Category Date Time Status Bedside COVID-19 Antigen Test NOW Care 04/02/25 19:48 Completed Insert IV NOW Care 04/02/25 23:32 Completed US OB >= 14 weeks Fetus Stat Exams 04/02/25 19:48 Completed Beta HCG,Quantitative Stat Lab 04/02/25 23:59 Completed CBC Stat Lab 04/02/25 23:59 Completed CMP [Comprehensive Metabolic Panel] Stat Lab 04/02/25 23:59 Completed Influenza A & B Rapid Panel Stat Lab 04/02/25 20:06 Completed Strep A Rapid Stat Lab 04/02/25 20:06 Completed Urinalysis Stat Lab 04/03/25 00:01 Completed Albuterol/Ipratr Rt Diana [Duoneb Rt Diana] Med 04/02/25 22:54 Discontinued 3 ml INH X1 ONE Dexamethasone Inj [Decadron Inj] Med 04/02/25 22:54 Discontinued 10 mg IM X1 ONE Ondansetron Inj [Zofran Inj] Med 04/02/25 22:54 Discontinued 4 mg IVP X1 ONE Sodium Chloride 0.9% 1000 ml [Ns] 1,000 ml Med 04/02/25 22:55 Discontinued IV 999 mls/hr Vital Signs Vital signs: Vital Signs Temperature 100.2 F 04/02/25 19:44 Pulse Rate 111 H 04/02/25 19:44 Respiratory Rate 18 04/02/25 19:44 Blood Pressure 139/84 H 04/02/25 19:44 Pulse Oximetry (%) 97 04/02/25 19:44 Oxygen Delivery Method Room Air 04/02/25 19:44 Oxygen saturation is 97% on room air temperature was rechecked and noted to be 99.5 patient heart rate was also rechecked and noted to be 90 Upper Respiratory Infection MDM Narrative MDM Narrative:: This is a case of 34-year-old female with no medical history came in in the emergency room due to cough on and off for 3 days associated with subjective fever chills sore throat and nasal congestion persistence of the symptoms now with vomiting twice nonprojectile and thus patient decided to sought consult here in the emergency room denies any abdominal pain denies any painful urination denies any back or flank pain denies any constipation diarrhea denies any shortness of breath chest pain denies any palpitation denies any vaginal bleeding vaginal discharge or vaginal spotting patient was initially seen by OB harpooner in the labor and delivery and was cleared and was sent back here in the emergency room physical examination patient is awake alert oriented not in distress nontoxic looking well-hydrated well-nourished HEENT exam is normal and unremarkable vital signs stable BP stable not tachycardic not tachypneic not hypoxic and afebrile negative for meningeal sign lung sounds noted wheezing right lower lung field no crackles no rales no retraction no stridor heart normal rate regular rhythm no murmur abdominal exam is benign nonsurgical no guarding no rebound no rigidity no tenderness gravid uterus the rest of the physical examination neurological exam is normal no signs and symptoms of sepsis dehydration no hypoxia patient blood test showed no leukocytosis no anemia kidney and liver function is normal no electrolyte imbalance urinalysis is normal beta-hCG is still pending but patient do not want to wait for the result and requested to be discharged ultrasound of the pelvic show will intrauterine 20 weeks with heart tones 160 patient COVID flu RSV and strep throat is negative patient was given a bolus of normal saline and Zofran for vomiting no recurrence noted patient was also given breathing treatment and dexamethasone which is both safe for patient was reassessed patient verbalized resolve of the symptoms no recurrence of the vomiting lungs sound is clear no wheezing noted patient was prescribed only with Ventolin inhaler for cough and shortness of breath and Zofran for vomiting she will see his OB harpooner tomorrow for reevaluation and checkup and for any worsening symptoms or any emergent concern return precaution in the emergency room was advised Patient was discharged with comfortable condition walking with stable gait. Patient verbalized no further complains explained diagnosis and answered patient question. Patient is comfortable with the proposed management plan including the need to follow up with his/her primary care physician and any specialist if applicable Discussed patient for any urgent condition or worsening sx, He/She needed to go to emergency room immediately or call 911. Patient acknowledge the responsibility to follow up as instructed and to monitor her/his symptoms. For any persistence of the symptoms for more than 3-5 days return precaution advised. Discussed the result of the test and was given printed discharge instruction Patient data External records reviewed:: [facility] previous records Clinical information provided by:: patient Social determinants that could affect healthcare access:: none Patient has the following chronic illnesses:: None How is presenting disease/condition affected by chronic disease/condition?: no chronic disease Evaluation data The following diagnostics were reviewed and interpreted by me:: lab results and radiology exam(s) Lab and/or radiology exams considered but not ordered:: Reviewed Interpretation Summary: Reviewed Medications / Prescriptions Medications or Prescriptions considered but not ordered:: Given Medication administrations:: Medication Administration History Discontinued Medications Albuterol/Ipratropium (Albuterol/Ipratropium (Duoneb) Rt Diana 3 Ml Nebu) 3 ml INH X1 ONE Stop: 04/02/25 22:55 Last Admin: 04/02/25 23:42 Dose: 3 ml Documented By: NE Dexamethasone Sodium Phosphate (Dexamethasone Sod Phos Inj 10 Mg/Ml Vial) 10 mg IM X1 ONE Stop: 04/02/25 22:55 Last Admin: 04/02/25 23:55 Dose: 10 mg Documented By: BD Sodium Chloride (Ns) 1,000 mls @ 999 mls/hr IV .Q1H1M ONE Stop: 04/02/25 23:55 Last Infusion: 04/03/25 00:22 Dose: Infused Documented By: Admin: 04/02/25 23:55 Dose: 999 mls/hr Documented By: MYLES Ondansetron HCl (Ondansetron Inj 2 Mg/Ml Inj 2 Ml) 4 mg IVP X1 ONE; Protocol Stop: 04/02/25 22:55 Last Admin: 04/02/25 23:56 Dose: 4 mg Documented By: BD Given Consultations Consultation(s) initiated? (list below): No Diagnosis Upper Respiratory Differential Diagnosis: upper respiratory infection, sinusitis, bronchitis, influenza and pharyngitis Most likely diagnosis given after review of the tests above:: Acute bronchitis pharyngitis vomiting Admission Indicated Admission indicated?: not indicated Explain why admission is indicated or not indicated:: Not indicated Admission Request Was there a request for admission?: No Admission Attestation Admission request attestation: Not indicated Disposition Plan Disposition Plan: Discharge Discharge Attestation Discharge Attestation: The patient and all family members were given an opportunity to ask questions and understood the discharge instructions. Discharge instructions specifically effects, indications for sooner follow up or return to the emergency department, and the expected course of current diagnosis. Patient condition: Stable Discharge Plan Plan Patient Disposition: HOME (Self Care) Patient condition on transfer: Stable Prescriptions/Referrals Prescriptions/Med Rec: New albuterol sulfate [Ventolin HFA] 90 mcg/actuation HFA aerosol inhaler 2 puff inhalation Q4H PRN (Reason: shortness of breath or wheezing) Qty: 8.5 0RF ondansetron HCl 4 mg tablet 4 mg PO Q8H PRN (Reason: nausea and vomiting) Qty: 3 0RF No Action norethindrone ac-eth estradiol [Microgestin 1.5/30 (21)] 1.5-30 mg-mcg Tablet amoxicillin-pot clavulanate 875-125 mg tablet 1 tab PO BID Qty: 14 0RF ondansetron 4 mg tablet,disintegrating 4 mg PO Q8H Qty: 20 0RF ibuprofen 600 mg tablet 600 mg PO Q8H PRN (Reason: pain) Qty: 20 0RF Referrals: No Primary/Family,Physician [Primary Care Provider] - In 1 week Problem List Clinical Impression: Acute bronchitis, Pharyngitis, Vomiting during Patient/Caregiver Discharge Instructions Education Materials: Preg 2nd Trimester, Self-Care for Sore Throats, ED Bronchitis, No Antibiotic (Adult), ED Vomiting (Adult) Additional Instructions: Follow-up with your primary care physician in 2 days for reevaluation it is very important to see your OB harpooner tomorrow for further evaluation and treatment of your vomiting in and for your checkup worsening symptoms or any emergent concerns such as fever chills vaginal bleeding vaginal discharge abdominal pain pelvic pain lower back pain return to the emergency room immediately or call 911 take your medication as directed increase water intake keep hydrated Pedialyte for every bouts of vomiting is advised Print Language: Montenegrin Stand Alone Forms: Diana Award Info., Patient Portal Info Letter PA/EMERGENCY SERVICES PROFESSIONAL Supervising Physician PA/KENNEY Supervising Physician: Dr. Gonzales
== END 2025-04-03 01:25 | disposition home or self-care (01) ==
PROVIDERS: Nurse Practitioner Family; Emergency Provider Emergency Medicine
DX: O99.512 Diseases of the respiratory system complicating pregnancy, second trimester (principal); J20.9 Acute bronchitis, unspecified; O21.9 Vomiting of pregnancy, unspecified; Z3A.20 20 weeks gestation of pregnancy
CPT/HCPCS: 36415; 76805; 80053; 81001; 84702; 85025; 87502; 87635; 87651; 94640; 96372; 96374; 99284; A9270; J1100; J2405; J7030

== ENCOUNTER 2025-04-07 10:23 | Outpatient (AMB) | payer MEDICAID, SELFPAY ==
[2025-04-07 10:43] VITALS: BP 124/81; PULSE 84; RESP 16; TEMP 36.6; O2SAT 98; BMI 42.5
--- NOTE | 2025-04-07 10:43 | OBCLNT_ITS ---
Vital Signs 04/07/25 10:43 Height 1.6 m Height Method Stated Weight 109.032 kg Weight Measurement Method Standing Scale BMI 42.5 BP 124/81 Blood Pressure Source Automatic Cuff Blood Pressure Location Left Upper Arm Position Sitting Respiration 16 Pulse 84 Pulse Source Monitor Temp 98 F Temp Source Oral Pulse Oximetry (%) 98 Oxygen Delivery Method Room Air Allergies/Home Meds Allergies & Medications Allergies No Known Allergies Allergy (Verified 04/07/25 10:44) Medication Reconciliation aspirin 81 mg tablet 81 mg PO QDAY 04/07/25 [History Confirmed 04/07/25] folic acid 1 mg tablet 1 mg PO QDAY 04/07/25 [History Confirmed 04/07/25] prenat.vits,kyrie,zie-kgjz-uokfx tab PO 04/07/25 [History Confirmed 04/07/25] Intake Visit Data Collection New Patient or Established: Established Patient (seen at [facility] within 3 years) Reason for Visit:: TRANSFER INITIAL CARE Seen by Clinical Staff ONLY (RN/MA): No Systems Applications Programming Lead Required: No Do You Feel Safe at Home: Yes Authorities Contacted: N/A PCP or OBGYN visit in last 3 months: Yes Hx Now: Yes Are you currently on any form of Control: No Last menstrual period: 11/09/24 Pain Present Currently: No Pain Scale Used: Dave-Zamarripa/Numerical Pain scale:: 0 Smoking Status Smoking Status: Never smoker Immunizations Flu Vaccine in the Last 12 Months: No Flu Vaccine Exclusion Criteria: Refused by Patient Questionnaires Covid-19 Vaccine Questionnaire Has patient been vacinated for Covid-19 Have you been vacinated for Covid-19: Yes PHQ-9 PHQ-2 Over the last 2 weeks, how often have you been bothered by any of the following problems? 1. Little interest or pleasure in doing things: not at all 2. Feeling down, depressed, or hopeless: not at all Total score: 0 PHQ-9 3. Trouble falling or staying asleep, or sleeping too much: Not at all 4. Feeling tired or having little energy: Not at all 5. Poor appetite or overeating: Not at all 6. Feeling bad about yourself - or that you are a failure or have let yourself or your family down: Not at all 7. Trouble concentrating on things, such as reading the newspaper or watching television: Not at all 8. Moving or speaking so slowly that other people could have noticed? - Or the opposite - being so fidgety or restless that you have been moving around a lot more than usual: not at all 9. Thoughts that you would be better off or of hurting yourself in some way: Not at all Total score: 0 Source: Developed by Drs. Baldomero Gaitan, Suri Butcher, Selvin Perez and colleagues, with an educational latonya from [employer]. 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: Past Medical History Past Medical History: No Hx Neurological Disorders, No Hx Cardiac Disorders (preeclamsia B/P is now normal), No Hx Cancer, Yes Hx Blood Disorders, Yes Hx Anemia, Yes Hx Gastrointestinal Disorders, No Hx Renal Disease, No Hx Diabetes Mellitus Type 1 and No Hx Diabetes Mellitus Type 2 Additional Operations/Hospitalizations (year & reason): removal of GB OB Initial Visit OB Flowsheet OB Flowsheet Initial Weight: Not Recorded Date -?-?-?-?-?-?-?-?--?-?-?-?- EGA Weight BP Alb Glu CTX Pres Fundal ht FHR Mov Dilation Station Effacement Hx Notes Visit Note 04/07/25 -?-?-?-?-?-?-?-?-?-?-?-?- 21w 1d 109.032 kg 124/81 22 144 active Menstrual History Menstrual reliability: definite Flow: normal Menstrual regularity: irregular Monthly: No Age at menarche: 9 On control pills at conception: No Associated symptoms (LMP): Denies amenorrhea, nausea, vomiting, fatigue, breast tenderness, urinary frequency, irritability, bloating or other OB History : 6 Para: 2 Hx Total # of Abortions (Spontaneous & Elective): 3 # of Living Children: 2 Delivery History 1st : Child's name: ALAN date: 02/22/20 sex: female Gestational age at delivery (weeks): 38 Delivery type: vaginal Delivery complications: NONE History of depression before or after : No 2nd : Child's name: MARCK date: 07/10/22 sex: female Gestational age at delivery (weeks): 37 Delivery type: vaginal Delivery complications: NONE History of depression before or after : No Infection History & Risk Evaluation History of STDs: none Genetic Screening & History Genetic Screening/Teratology Counseling - Includes patient, baby's father, or anyone in either family with: 1. Patient's age 35 years or older as of estimated date of delivery: No 2. Thalassemia (Maori, Equatorial [place]inean, Mediterranean, or Background); MCV less than 80: No 3. Neural Tube Defect (Meningomyelocele, Spina Bifida, or Anencephaly): No 4. Congenital Heart Defect: No 5. Down Syndrome: No 6. Eitan-Sachs (Ashkenazi Sabianism, Cajun, German [place]): No 7. Justin Disease (Ashkenazi Sabianism): No 8. Familial Dysautonomia (Ashkenazi Sabianism): No 9. Sickle Cell Disease or Trait (): No 10. Hemophilia or other blood disorders: No 11. Muscular Dystrophy: No 12. Cystic Fibrosis: No 13. Holt's Chorea: No 14. Mental Retardation/Autism: Yes (DAUGHTER AND NEPHEW) 15. Other inherited genetic or chromosomal disorder: No 16. Maternal Metabolic Disorder (EG,TYPE 1 Diabetes, PKU): No 17. Patient or baby's father had a child with defects not listed above: No 18. Recurrent loss or a stillbirth: Yes 19. Medications (including supplements, vitamins, herbs or otc drugs)/illicit/recreational drugs/alcohol since last menstrual period: No 20. Any other: No Infection History 1. Live with someone with TB or exposed to TB: No 2. Rash or viral illness since last menstrual period: No 3. Hepatitis B,C: No Other (see comments) Source: [employer] Review of Systems Review of Systems Systems Reviewed: All systems reviewed, normal except as documented Constitutional Constitutional: Denies fatigue Gastrointestinal Gastrointestinal: Denies bloating, Denies nausea and Denies vomiting Genitourinary Genitourinary: Denies amenorrhea and Denies urinary frequency Psychiatric Psychiatric: Denies irritability Endocrine Endocrine: Denies fatigue Exam Narrative Physical exam: Alert and oriented x 3 no shortness of breath Pain no chest pain no palpitations Chest clear bilaterally no additional sounds, no wheezing no rales CVS regular rate and rhythm No CVAT Abdomen nontender, normal bowel sounds No guarding no rigidity No hernias Office Procedures OBC Clinic LOC & Office Proc's Nursing/Assessment Patient Status: Established Patient OB Clinic Nursing Assessment: Medication Reconciliation, Update PMH in EMR and Vital Signs OB Clinic Coordination of Care: Complex Care and Chronic Disease 1-5, Consent,records obtained, informed consent, Education Simp Pt/Fam, 1 Ins Authorization, Lab and Imaging orders, Results/Orders obtained and Staff clarify orders Special Needs: Heart tones Established Patient Charge Established Patient Point Assignment: 150 Established Patient Point Charge: EP Level 4 (120-155) Assessment & Plan Diagnosis / Problem List (1) : Status: Acute Qualifiers: Weeks of gestation: 21 weeks Qualified Code(s): Z3A.21 - 21 weeks gestation of (2) 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
== END 2025-04-07 12:00 | disposition home or self-care (01) ==
PROVIDERS: PCP Family Medicine; Referring Provider Family Medicine; Supervising Provider Obstetrics & Gynecology; Visit Provider Obstetrics & Gynecology
DX: O09.292 Supervision of pregnancy with other poor reproductive or obstetric history, second trimester (principal); O26.22 Pregnancy care for patient with recurrent pregnancy loss, second trimester; O09.892 Supervision of other high risk pregnancies, second trimester; O99.212 Obesity complicating pregnancy, second trimester; Z3A.21 21 weeks gestation of pregnancy; Z87.59 Personal history of other complications of pregnancy, childbirth and the puerperium
CPT/HCPCS: 99214; G0463

== ENCOUNTER 2025-04-20 14:42 | Observation (INO) | payer MEDICAID, SELFPAY ==
[2025-04-20 14:52] VITALS: BMI 41.6
[2025-04-20 14:58] VITALS: BP 137/75; PULSE 106; RESP 20; TEMP 36.9
[2025-04-20] MEDS: RINGERS LACTATED 1000 ML 1,000 ML 125 ML IV (15:12)
[2025-04-20] MEDS: ONDANSETRON INJ 2 MG/ML INJ 2 ML 4 MG IV (15:15)
[2025-04-20] MEDS: ACETAMINOPHEN IVPB 1,000 MG/100 ML VIAL 250 MG IV (15:20)
[2025-04-20 16:18] VITALS: BP 127/74; PULSE 84
[2025-04-20] MEDS: ACETAMIN/CAFF/BUTAL (Fioricet) 1 TAB PO (17:52)
--- NOTE | 2025-04-21 09:46 | PD.LDPN ---
Documentation for date of: 04/21/25 OB Labor Progress Note Pelvic Exam Amniotic membrane status: Intact Contractions Monitor mode: Palpation Assessment and Plan Comments: Late note for encounter on 04/20/25 Triage visit for nausea/vomiting, MCKEON Keyshawn is a 34yo with SIUP at 23&0wk presenting to L&D for headache, nausea, vomiting. She denies sick contacts. She denies diarrhea. No fevers/chills. She notes hx of n/v throughout and also occasional migraines. She has not been prescribed anything for migraines previously, takes tylenol when they occur but has not taken tylenol for this MCKEON. She notes no painful/regular ctx, no vaginal bleeding, no loss of fluid. Normal movement. PMhx/PNC significant for: -Pre-eclampsia with prior -Current BMI 41.7 -Migraines -N/V of -Transfer of Care from [facility] to Dr. Tran ROS negative other than what was described above. Vitals wnl, afebrile General: well developed, well nourished, active emesis Cardiac: normal heart rate Lungs: breathing without distress Abdomen: soft, gravid, non-tender, no rebound or guarding Extremities: no edema BLE + doptones Assessment: Keyshawn is a 34yo with SIUP at 23&0wk with n/v in the setting of MCKEON, has hx of migraines. After 1L IVF, IV zofran, tylenol 100mg and then 1 tab of fioricet, she is feeling better and was able to tolerate PO challenge. FHRT is Cat I. Vitals wnl, benign exam. Plan: -Patient to follow up with Dr. Tran or PCP for conversation regarding migraine medication management -tylenol prn headache for now -good hydration -Discussed return precautions. Diane Caicedo MD
== END 2025-04-20 20:00 | disposition home or self-care (01) ==
PROVIDERS: Admitting Provider Obstetrics & Gynecology; Visit Provider Obstetrics & Gynecology
DX: O21.2 Late vomiting of pregnancy (principal); Z3A.23 23 weeks gestation of pregnancy; O26.892 Other specified pregnancy related conditions, second trimester; R51.9 Headache, unspecified
CPT/HCPCS: 59899; 96374; J0131; J2405; J7120; A9270

== ENCOUNTER 2025-04-28 15:44 | Observation (INO) | payer MEDICAID, SELFPAY ==
[2025-04-28 15:53] VITALS: BP 167/77; PULSE 94; RESP 18; RESP 99; TEMP 36.7
[2025-04-28 16:09] VITALS: BP 124/81; PULSE 99
[2025-04-28] MEDS: RINGERS LACTATED 1000 ML 1,000 ML 999 ML IV (16:20)
[2025-04-28 16:24] VITALS: BP 122/80; PULSE 95
[2025-04-28 16:39] VITALS: BP 126/77; PULSE 87
[2025-04-28 16:48] VITALS: BMI 43.2
[2025-04-28 16:52] LABS: Basophils # (Auto) 0.1 Thou/mm3 (0.0-0.2); Basophils % (Auto) 0 % (0-2.5); Eosinophils # (Auto) 0.1 Thou/mm3 (0.0-0.5); Eosinophils % (Auto) 1 % (0-10); Hematocrit 30.8 % (36.0-46.0); Hemoglobin 10.7 g/dL (12.0-16.0); Immature Granulocytes Auto 0.12 Thou/mm3 (0.00-0.00); Lymphocytes # (Auto) 2.3 Thou/mm3 (1.0-4.8); Lymphocytes % (Auto) 16 % (10-50); Mean Corpuscular HGB Conc 34.7 g/dl (31.0-37.0); Mean Corpuscular Hemoglobin 29.8 pg (25.0-35.0); Mean Corpuscular Volume 86 fL (80-100); Monocytes # (Auto) 0.7 Thou/mm3 (0.0-0.8); Monocytes % (Auto) 5 % (0-12); Neutrophils # (Auto) 10.8 Thou/mm3 (1.8-7.7); Neutrophils % (Auto) 77 % (37-80); Nucleated Red Blood Cell # 0.00 Thou/mm3 (0.00-0.00); Nucleated Red Blood Cell % 0 /100 WBC (0); Platelet Count 265 Thou/mm3 (140-440); RDW Standard Deviation 40.3 fL (36.4-46.3); Red Blood Count 3.59 Miln/mm3 (4.00-5.20); White Blood Count 14.1 Thou/mm3 (3.6-11.0)
[2025-04-28 17:12] LABS: INR 0.9 (0.9-1.3); Partial Thromboplastin Time 25.5 Seconds (22.0-36.0); Prothrombin Time 10.0 Seconds (9.0-12.2)
[2025-04-28] MEDS: ACETAMIN/CAFF/BUTAL (Fioricet) 1 TAB PO (17:15)
[2025-04-28 17:20] LABS: Fibrinogen 690 mg/dL (175-375)
[2025-04-28 17:21] LABS: Alanine Aminotransferase 9 U/L (10-49); Albumin, Serum 4.2 gm/dL (3.5-5.0); Albumin/Globulin Ratio 1.6 (1.2-2.2); Alkaline Phosphatase 62 U/L (46-116); Anion Gap 11 (7-16); Aspartate Amino Transferase 12 U/L (0-34); BUN/Creatinine Ratio 15 Ratio (12-20); Bilirubin,Total 0.2 mg/dL (0.3-1.2); Blood Urea Nitrogen 6 mg/dL (9-23); Calcium 9.0 mg/dL (8.3-10.6); Calcium (Corrected) 9.0 mg/dL (8.5-10.1); Carbon Dioxide 24.0 mMol/L (20.0-31.0); Chloride 107 mMol/L (98-107); Creatinine (Component) 0.4 mg/dL (0.6-1.3); Estimated Creatinine Clearance 236.9 mL/min (>60); Globulin 2.6 gm/dL (2.3-3.5); Glucose 109 mg/dL (74-106); LDH (Lactate Dehydrogenase) 150 U/L (120-246); Osmolality,Calculated 281 (275-295); Potassium 3.6 mMol/L (3.4-5.1); Sodium 142 mMol/L (136-145); Total Protein 6.8 gm/dL (5.7-8.2); Uric Acid 2.4 mg/dL (3.1-7.8); eGFR > 60 See Note
[2025-04-28 17:51] LABS: Collection Type, Urine Clean Catch
[2025-04-28 17:57] LABS: Bacteria,Urine Rare; Bilirubin,Urine Negative (Negative); Blood,Urine Negative (Negative); Clarity,Urine Clear (Clear/Hazy); Color,Urine Colorless (Lt Yel-Yel); Glucose, Urine Negative (Negative); Ketones,Urine Negative (Negative); Leukocyte Esterase,Urine Negative (Negative); Nitrite,Urine Negative (Negative); PH,Urine 7.5 (5.0-7.0); Protein,Urine Negative (Neg - Trace); RBC,Urine < 1 /hpf (0-3); Specific Gravity,Urine 1.006 (1.001-1.035); Squamous Epithelial Cell,Urine < 1 /hpf (0-5); Urobilinogen,Urine Negative mg/dL (0.0-1.0); WBC,Urine 1 /hpf (0-5)
[2025-04-28 18:10] LABS: Creatinine,Random Urine 18 mg/dL (30-125); Protein Total, Random Urine < 6 mg/dL (1-14)
== END 2025-04-28 18:06 | disposition home or self-care (01) ==
PROVIDERS: Admitting Provider Obstetrics & Gynecology; Visit Provider Obstetrics & Gynecology
DX: O21.2 Late vomiting of pregnancy (principal); O26.892 Other specified pregnancy related conditions, second trimester; R51.9 Headache, unspecified; Z3A.24 24 weeks gestation of pregnancy
CPT/HCPCS: 36415; 59025; 59899; 80053; 81001; 82570; 83615; 84156; 84550; 85025; 85384; 85610; 85730; 87086; J7120; A9270

== ENCOUNTER 2025-05-06 09:18 | Outpatient (AMB) | payer MEDICAID, SELFPAY ==
--- NOTE | 2025-05-06 09:26 | AMB.OBPNC ---
Vital Signs 05/06/25 09:27 Height 1.6 m Height Method Stated Weight 111.187 kg Weight Measurement Method Standing Scale BMI 43.4 BP 121/72 Blood Pressure Source Automatic Cuff Blood Pressure Location Left Upper Arm Position Sitting Respiration 18 Pulse 80 Pulse Source Monitor Temp 98.2 F Temp Source Oral Pulse Oximetry (%) 98 Oxygen Delivery Method Room Air Allergies/Home Meds Allergies & Medications Allergies No Known Allergies Allergy (Verified 05/06/25 09:27) Medication Reconciliation aspirin 81 mg tablet 81 mg PO QDAY 04/07/25 [History Confirmed 05/06/25] folic acid 1 mg tablet 1 mg PO QDAY 04/07/25 [History Confirmed 05/06/25] prenat.vits,kyrie,dfx-dudj-fklcw 1 tab PO DAILY 04/07/25 [History Confirmed 05/06/25] ondansetron 4 mg disintegrating tablet 4 mg PO Q8H 04/20/25 [History Confirmed 05/06/25] metoclopramide HCl 10 mg tablet (Reglan) 10 mg PO QACHS #30 tabs 05/06/25 [Rx] Immunizations Immunizations Flu Vaccine in the Last 12 Months: No Flu Vaccine Exclusion Criteria: Refused by Patient Care OB Visit Log OB Flowsheet Initial Weight: Not Recorded Date <del>?</del> EGA Weight BP Alb Glu CTX Pres Fundal ht FHR Mov Dilation Station Effacement Hx Notes Visit Note 04/07/25 <del>?</del> 21w 1d 109.032 kg 124/81 22 144 active 05/06/25 <del>?</del> 25w 2d 111.187 kg 121/72 25 148 active CAROLINE Calculator Estimated Delivery Date Method Current WG Current Estimate 08/17/25 LMP (Certain) 25w 2d Other Estimates 08/17/25 Ultrasound #1 25w 2d Notes Visit Date: 05/06/25 Last Updated by: Sierra Tran MD 34 years old Ab 3 at 25.2 weeks . c/o headaches and taking about 3 grams tylenol every day/ has been to ED for it BP is normal today / Saw Dr Gillespie on 03/30/2025 and appropriate growth / she has a follow up in 6 weeks for appropriate growth / due to BMI recommend NST Biweekly after 32 weeks / Try Reglan with tylenol for headaches / fioricet she prefers not to take / One hour GTT and RPR and CBC ordered Visit Date: 04/07/25 Last Updated by: Sierra Tran MD 34 years old L2 Ab 3 / transfer from [facility] [address] / obesity and has follow up with Dr Gillespie / she has h/o Hypertension last and was Induced at 37 weeks / Last baby was 7.11 lbs and first was 8.11 lbs / she is on baby ASA and also PNV / B positive/ RPR NR/ Hb Sag negative HIV NR/ rubella immune /Gc and CT negative / follow up in 4 weeks Office Procedures OBC Clinic LOC & Office Proc's Nursing/Assessment Patient Status: Established Patient OB Clinic Nursing Assessment: Medication Reconciliation, Update PMH in EMR and Vital Signs OB Clinic Coordination of Care: Complex Care and Chronic Disease 1-5, Consent,records obtained, informed consent, Education Simp Pt/Fam, Lab and Imaging orders, Results/Orders obtained and Staff clarify orders Special Needs: Heart tones Established Patient Charge Established Patient Point Assignment: 135 Established Patient Point Charge: EP Level 4 (120-155) Assessment & Plan Diagnosis / Problem List (1) 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 c/o headaches and taking about 3 grams tylenol every day/ has been to ED for it BP is normal today / Saw Dr Gillespie on 03/30/2025 and appropriate growth / she has a follow up in 6 weeks for appropriate growth / due to BMI recommend NST Biweekly after 32 weeks / Try Reglan with tylenol for headaches / fioricet she prefers not to take / One hour GTT and RPR and CBC ordered / she has h/o gestational hypertension and is on Baby ASA Additional Plan Follow Up: 3 to 4 weeks
[2025-05-06 09:27] VITALS: BP 121/72; PULSE 80; RESP 18; TEMP 36.8; O2SAT 98; BMI 43.4
== END 2025-05-06 09:32 | disposition home or self-care (01) ==
LOC: HODSOBC 09:18
PROVIDERS: Supervising Provider Obstetrics & Gynecology; Visit Provider Obstetrics & Gynecology
DX: O09.292 Supervision of pregnancy with other poor reproductive or obstetric history, second trimester (principal); O26.22 Pregnancy care for patient with recurrent pregnancy loss, second trimester; O09.892 Supervision of other high risk pregnancies, second trimester; O99.212 Obesity complicating pregnancy, second trimester; Z3A.25 25 weeks gestation of pregnancy; Z87.59 Personal history of other complications of pregnancy, childbirth and the puerperium; Z28.21 Immunization not carried out because of patient refusal
CPT/HCPCS: 99214; G0463